=== PATIENT | male | born 1975 | race Caucasian/White ===

== ENCOUNTER 2022-07-13 21:39 | Emergency (ER) | payer OTHER, SELFPAY ==
[2022-07-13 21:51] VITALS: BP 138/92; PULSE 121; RESP 18; TEMP 37.1; O2SAT 95
[2022-07-13 21:52] VITALS: PULSE 120; O2SAT 94
[2022-07-13 22:00] VITALS: PULSE 119; O2SAT 93
--- NOTE | 2022-07-13 22:17 | CRLHL7_ITS ---
For Patients: As a result of the Century Cures Act, medical imaging exams and procedure reports are released immediately into your electronic medical record. You may view this report before your referring provider. If you have questions, please contact your health care provider. INDICATION: Fall, loss of consciousness, impact to right side of head/face. TECHNIQUE: CT head without contrast. Permanently recorded images are archived. COMPARISON: None. FINDINGS: CSF spaces: Within normal limits for age. Brain parenchyma and extra-axial spaces: The crawford-white differentiation is normal. No sign of mass, hemorrhage, or midline shift. No extra-axial fluid collection. Skull base and calvarium: The visualized paranasal sinuses demonstrate no acute or significant findings. The mastoid air cells are clear. The visualized orbits are grossly unremarkable. There is a scalp laceration overlying the anterolateral right frontal lobe. Several foci of subcutaneous emphysema are noted. No underlying skull fracture. 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 IMPRESSION: No evidence of an acute intracranial abnormality. Scalp laceration overlying the anterolateral right frontal lobe. No underlying skull fracture. 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 Please note that all CT scans at this facility use dose modulation, iterative reconstruction, and/or weight-based dosing when appropriate to reduce radiation dose to as low as reasonably achievable. Dictated by Rey De La Rosa MD @ 07/13/2022 11:49:27 PM (Electronically Signed)
--- NOTE | 2022-07-13 22:17 | CRLHL7_ITS ---
For Patients: As a result of the Cures Act, medical imaging exams and procedure reports are released immediately into your electronic medical record. You may view this report before your referring provider. If you have questions, please contact your health care provider. INDICATION: Fall. TECHNIQUE: CT cervical spine without contrast. Permanently recorded images are archived. COMPARISON: None. FINDINGS: Vertebrae: Straightening of the cervical lordosis. There are no fractures or suspicious bony lesions. Discs and facet joints: There are mild multilevel degenerative disc changes most pronounced at C6-7. There are mild multilevel degenerative changes in the facets. Extraspinal findings: Paraspinous soft tissues are unremarkable. IMPRESSION: 1. No sign of acute injury. 2. Mild multilevel degenerative spondylosis. Please note that all CT scans at this facility use dose modulation, iterative reconstruction, and/or weight-based dosing when appropriate to reduce radiation dose to as low as reasonably achievable. Dictated by Rey De La Rosa MD @ 07/13/2022 11:52:15 PM (Electronically Signed)
[2022-07-13 22:26] LABS: Basophils Percent Auto 0.7 % (0.0-3.0); Eosinophils Percent Auto 2.5 % (0.0-7.0); Hematocrit 45.6 % (37.0-53.0); Hemoglobin* 16.1 gm/dL (13.5-17.5); Immature Granulocytes Pct Auto 0.2 %; Lymphocytes Percent Auto 16.9 % (20-44); Mean Corpuscular HGB Conc 35 gm/dL (32-36); Mean Corpuscular Hemoglobin 33 pg (26-34); Mean Corpuscular Volume 92 fL (80-100); Monocytes Percent Auto 5.8 % (0.0-11.0); Neutrophils Percent Auto 73.9 % (42.0-72.0); Platelet Count* 274 K/uL (140-440); RDW Coefficient of Variation % 12.6 % (11.5-15.5); Red Blood Count 4.94 m/uL (4.30-5.90); White Blood Count* 11.79 K/uL (4.50-11.00)
[2022-07-13 22:27] LABS: Slide Review Reflex No
[2022-07-13] MEDS: 0.9 % SODIUM CHLORIDE 1000 ml 1,000 ML IV ×2 (22:29→23:02)
[2022-07-13] MEDS: KETOROLAC 30 MG/ML inj IVP (22:29)
[2022-07-13 22:39] LABS: Troponin, Point-of-Care* 0.01 ng/ml (0.01-0.04)
[2022-07-13 22:41] LABS: Chloride* 102 mmol/L (96-114); Sodium* 140 mmol/L (135-149)
[2022-07-13 22:42] LABS: Potassium* 3.6 mmol/L (3.6-5.1)
[2022-07-13 22:44] LABS: Blood Urea Nitrogen* 11 mg/dL (5-24); Carbon Dioxide* 26 mmol/L (20-32); Creatinine* 1.1 mg/dL (0.5-1.5); Estimated Glomerular Filt Rate 83 ml/min
[2022-07-13 22:45] LABS: Calcium* 9.5 mg/dL (8.4-10.6); Ethanol* < 0.01 % (0.01-0.03); Glucose* 111 mg/dL (60-115)
--- NOTE | 2022-07-14 00:35 | ED_ITS ---
HPI - Syncope General Date Seen: 07/14/22 Chief Complaint: Unspecified Complaint, Adult Stated Complaint: syncope head lac Time Seen by Provider: 07/13/22 21:51 Source: patient and EMS Mode of arrival: EMS Limitations: no limitations History of Present Illness HPI narrative: Patient is a very nice 47-year-old gentleman who presents here from home, after a syncopal episode. He notices that he would got up, from his chair and started walking to his room, he felt he might pass out as he has had this happen to him before, he passed out and hit his head he thinks on door frame. Suffering a laceration to the right side of his head. He came to on the ground, his roommate heard this, and came to see me in a very large laceration so they called the ambulance the ambulance brought him in. Feels like he is back to baseline now, he did not have any chest pain, he denies any feeling that his heart was racing, he does admit to having 2 beers earlier today, otherwise feels good. Denies any significant neck pain, diplopia double vision feeling nausea, is not on any anticoagulants. MD complaint: loss of consciousness, felt faint and collapsed Onset (ago): hour(s) Prodromal symptoms: lightheaded Witnessed: No Context: standing up Injuries sustained associated with event: head Current symptoms: back to baseline History: previous syncopal episode Treatments prior to arrival: none Related Data Home Medications Medication Instructions Recorded Confirmed No Known Home Medications 07/13/22 07/13/22 Allergies Allergy/AdvReac Type Severity Reaction Status Date / Time No Known Drug Allergies Allergy Verified 07/13/22 21:50 Review of Systems Status of ROS: Reports: 10 or more systems reviewed and unremarkable except as noted in History and below [facility] Social History How often do you have a drink containing alcohol: 2-3 times a week AUDIT-C Alcohol total score: 3 Non-prescribed substance use: denies use Exam Narrative: Exam Narrative: Very nice gentleman seen in room 3, speaking to me normally GCS is 15/15, he is alert and oriented x3, is pupils equal round reactive to light his TMs are normal, he is in C-spine protection. Oropharynx is normal, large laceration of approximately 7 in is noted over his right temporal region problem that comes across to his forehead. It is gaping, slightly bleeding. Chest is clear heart sounds are normal, no clicks murmurs or gallops, abdomen is soft, pelvis is normal stable, cervical thoracic and lumbar spines are all palpated and normal with no pain. 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 Const: Vital Signs, click to edit/add: Vital Signs - 24 hr 07/13/22 21:51 07/13/22 21:52 07/13/22 22:00 Temperature 98.7 F Pulse Rate 120 H 119 H Pulse Rate [Left P ulse Oximeter] 121 H Respiratory Rate 18 Blood Pressure [Ri ght Upper Arm] 138/92 H Pulse Oximetry 95 94 93 Oxygen Delivery Me thod Room Air Documenting provider has reviewed patient's vital signs: yes Course Course Hospital Course: Patient is seen and assessed, receive IV fluids EKG showed normal sinus rhythm with no acute changes. Troponin was negative, laboratory work was reassuring. His CT of his head and neck, was also reassuring, showing no intracranial issues, no cervical spine injury. I discussed with him. That the we will repair his laceration, 23 5-0 sutures, along with cleaning and some debridement was done. 1% xylocaine with epinephrine was used, time 7 mL, was cleaned out with normal saline, and then sterile prep and drape was done. Vital Signs Vital signs: Initial Vital Signs Temperature 98.7 F 07/13/22 21:51 Temperature Source Temporal Artery Scan 07/13/22 21:51 Pulse Rate 121 H 07/13/22 21:51 Pulse Rhythm Regular 07/13/22 21:51 Respiratory Rate 18 07/13/22 21:51 Blood Pressure 138/92 H 07/13/22 21:51 Blood Pressure Mean 107 H 07/13/22 21:51 Blood Pressure Position Semi-Fowlers 07/13/22 21:51 Pulse Oximetry 95 07/13/22 21:51 Oxygen Delivery Method Room Air 07/13/22 21:51 Vital Signs Temperature 98.7 F 07/13/22 21:51 Pulse Rate 121 H 07/13/22 21:51 Respiratory Rate 18 07/13/22 21:51 Blood Pressure 138/92 H 07/13/22 21:51 Pulse Oximetry 95 07/13/22 21:51 Oxygen Delivery Method Room Air 07/13/22 21:51 Temperature 98.7 F 07/13/22 21:51 Pulse Rate 119 H 07/13/22 22:00 Respiratory Rate 18 07/13/22 21:51 Blood Pressure 138/92 H 07/13/22 21:51 Pulse Oximetry 93 07/13/22 22:00 Oxygen Delivery Method Room Air 07/13/22 21:51 MDM - Syncope MDM Narrative Medical decision making narrative: Life-threatening differential diagnosis considered include: Cardiac arrhythmia, acute blood loss, and intracranial bleed. Other differential diagnosis include but are not limited to vasovagal syncope, orthostatic syncope, seizure, as well as other etiologies Life-threatening differential diagnosis is considered include: Subarachnoid hem orrhage, subdural hemorrhage, epidural hemorrhage. Other differential diagnosis considered include concussion, closed head injury, or neck fracture. Differential Diagnosis Differential diagnosis: Likely syncope due to orthostatic hypotension, vasovagal syncope, complete atrioventricular block, subarachnoid hemorrhage, pulmonary embolism and dehydration Medical Records Attestation: I reviewed the patient's medical records. Lab Data Attestation: I reviewed the patient's lab results. Labs: Lab Results 07/13/22 07/13/22 07/13/22 Range/Units 22:18 22:20 22:20 WBC 11.79 H (4.50-11.00) K/uL RBC 4.94 (4.30-5.90) m/uL Hgb 16.1 (13.5-17.5) gm/dL Hct 45.6 (37.0-53.0) % MCV 92 (80-100) fL MCH 33 (26-34) pg MCHC 35 (32-36) gm/dL RDW Coeff of Octavio 12.6 (11.5-15.5) % Plt Count 274 (140-440) K/uL Neut % (Auto) 73.9 H (42.0-72.0) % Lymph % (Auto) 16.9 L (20-44) % [place] % (Auto) 5.8 (0.0-11.0) % Eos % (Auto) 2.5 (0.0-7.0) % Baso % (Auto) 0.7 (0.0-3.0) % Neut # (Auto) 8.70 H (1.7-7.0) K/uL Lymph # (Auto) 2.00 (0.90-2.90) K/uL [place] # (Auto) 0.70 (0.00-0.90) K/UL Eos # (Auto) 0.30 (0.00-0.50) K/uL Baso # (Auto) 0.10 (0.00-0.30) K/uL Sodium Cancelled 140 Potassium Cancelled Chloride Carbon Dioxide BUN Creatinine Estimated Creat Clear Estimated GFR Glucose Calcium Ethyl Alcohol (0.01-0.03) % POC Troponin I 0.01 (0.01-0.04) ng/ml 07/13/22 07/13/22 07/13/22 Range/Units 22:20 22:20 22:20 WBC (4.50-11.00) K/uL RBC (4.30-5.90) m/uL Hgb (13.5-17.5) gm/dL Hct (37.0-53.0) % MCV (80-100) fL MCH (26-34) pg MCHC (32-36) gm/dL RDW Coeff of Octavio (11.5-15.5) % Plt Count (140-440) K/uL Neut % (Auto) (42.0-72.0) % Lymph % (Auto) (20-44) % [place] % (Auto) (0.0-11.0) % Eos % (Auto) (0.0-7.0) % Baso % (Auto) (0.0-3.0) % Neut # (Auto) (1.7-7.0) K/uL Lymph # (Auto) (0.90-2.90) K/uL [place] # (Auto) (0.00-0.90) K/UL Eos # (Auto) (0.00-0.50) K/uL Baso # (Auto) (0.00-0.30) K/uL Sodium Potassium 3.6 Chloride Cancelled 102 Carbon Dioxide Cancelled 26 BUN Cancelled Creatinine Estimated Creat Clear Estimated GFR Glucose Calcium Ethyl Alcohol (0.01-0.03) % POC Troponin I (0.01-0.04) ng/ml 07/13/22 07/13/22 07/13/22 Range/Units 22:20 22:20 22:20 WBC (4.50-11.00) K/uL RBC (4.30-5.90) m/uL Hgb (13.5-17.5) gm/dL Hct (37.0-53.0) % MCV (80-100) fL MCH (26-34) pg MCHC (32-36) gm/dL RDW Coeff of Octavio (11.5-15.5) % Plt Count (140-440) K/uL Neut % (Auto) (42.0-72.0) % Lymph % (Auto) (20-44) % [place] % (Auto) (0.0-11.0) % Eos % (Auto) (0.0-7.0) % Baso % (Auto) (0.0-3.0) % Neut # (Auto) (1.7-7.0) K/uL Lymph # (Auto) (0.90-2.90) K/uL [place] # (Auto) (0.00-0.90) K/UL Eos # (Auto) (0.00-0.50) K/uL Baso # (Auto) (0.00-0.30) K/uL Sodium Potassium Chloride Carbon Dioxide BUN 11 Creatinine Cancelled 1.1 Estimated Creat Clear Cancelled Estimated GFR Cancelled 83 Glucose Cancelled Calcium Ethyl Alcohol (0.01-0.03) % POC Troponin I (0.01-0.04) ng/ml 07/13/22 07/13/22 Range/Units 22:20 22:20 WBC (4.50-11.00) K/uL RBC (4.30-5.90) m/uL Hgb (13.5-17.5) gm/dL Hct (37.0-53.0) % MCV (80-100) fL MCH (26-34) pg MCHC (32-36) gm/dL RDW Coeff of Octavio (11.5-15.5) % Plt Count (140-440) K/uL Neut % (Auto) (42.0-72.0) % Lymph % (Auto) (20-44) % [place] % (Auto) (0.0-11.0) % Eos % (Auto) (0.0-7.0) % Baso % (Auto) (0.0-3.0) % Neut # (Auto) (1.7-7.0) K/uL Lymph # (Auto) (0.90-2.90) K/uL [place] # (Auto) (0.00-0.90) K/UL Eos # (Auto) (0.00-0.50) K/uL Baso # (Auto) (0.00-0.30) K/uL Sodium Potassium Chloride Carbon Dioxide BUN Creatinine Estimated Creat Clear Estimated GFR Glucose 111 Calcium Cancelled 9.5 Ethyl Alcohol < 0.01 L (0.01-0.03) % POC Troponin I (0.01-0.04) ng/ml Discharge Plan Discharge Clinical Impression: Syncope, Head injury, Complex laceration of scalp Patient Disposition: Home w/ Parent or Adult Condition: Improved Instructions: Laceration (DC), Head Injury (DC), Near Syncope (ED) Additional Instructions: Home rest use of bacitracin on the wound, antibiotics is also prescribed, please use these for 5 days to try to prevent infection, no swimming but showering is encouraged, redness swelling I would think that this is infection please come back. Sutures should come out in 1 week, he can do this at the clinic. Activity Level: No Restrictions Prescriptions: No Action No Known Home Medications Follow Up/Referrals: Provider,Not a Local [Primary Care Provider] - Stand Alone Forms: [employer] Info Instructions
== END 2022-07-14 00:41 | disposition home or self-care (01) ==
PROVIDERS: Emergency Provider Family Medicine
DX: S01.01XA Laceration without foreign body of scalp, initial encounter (principal); S09.90XA Unspecified injury of head, initial encounter; R55 Syncope and collapse; W18.39XA Other fall on same level, initial encounter
CPT/HCPCS: 12002; 36415; 70450; 72125; 80048; 82077; 84484; 85025; 93005; 96361; 96374; 99284; J1885; J7030